=== PATIENT | female | born 1985 | race Caucasian/White ===

== ENCOUNTER 2020-11-02 18:39 | Emergency (ER) | payer SELFPAY ==
[~2020-11-02] VITALS: Ht 162.6 cm; Wt 113.4 kg
[2020-11-02 19:09] VITALS: BP 120/77
--- NOTE | 2020-11-02 19:14 | NUR ---
TO LOBBY A/W BED AMBULATORY
--- NOTE | 2020-11-02 20:00 | NUR ---
SEEN AND EXAMINED BY AMINATA , WITH ORDERS AND CARRIED OUT
[2020-11-02 20:21] LABS: APPEARANCE,URINE CLOUDY (CLEAR); BILIRUBIN,URINE NEGATIVE (NEGATIVE); BLOOD, URINE 3+ (NEGATIVE); COLOR,URINE YELLOW (YELLOW); LEUKOCYTE ESTERASE ,URINE NEGATIVE (NEGATIVE); NITRITE, URINE NEGATIVE (NEGATIVE); PH,URINE 7.5 (5.0-9.0); UGLUCOSE NEGATIVE (NEGATIVE)
[2020-11-02 20:28] LABS: RBC,URINE 11-20 (MOD) /HPF (0-5); WBC,URINE 0-5 /HPF (0-5)
[2020-11-02 21:37] LABS: BASOPHILS # (AUTO) 0.1 K/uL (0.00-0.22); BASOPHILS % (AUTO) 0.7 % (0.0-2.0); EOSINOPHILS # (AUTO) 0.1 K/uL (0-0.4); EOSINOPHILS % (AUTO) 0.6 % (0.0-4.0); HEMATOCRIT 37.9 % (36-48); HEMOGLOBIN 12.6 g/dL (12.0-16.0); LYMPHOCYTES % (AUTO) 25.8 % (20.5-51.1); MEAN CORPUSCULAR HEMOGLOBIN 27 pg (27-31); MEAN CORPUSCULAR HGB CONC 33 g/dL (33-37); MEAN CORPUSCULAR VOLUME 81.1 fL (80-94); MONOCYTES # (AUTO) 0.7 K/uL (0.8-1.0); MONOCYTES % (AUTO) 6.3 % (1.7-9.3); NEUTROPHILS # (AUTO) 7.8 K/uL (1.8-7.7); NEUTROPHILS % (AUTO) 66.6 % (42.2-75.2); PLATELET COUNT (AUTO) 486 K/uL (140-450); RED BLOOD CELL COUNT(AUTO) 4.68 MIL/uL (4.20-5.40); RED CELL DISTRIBUTION WIDTH 14.6 % (11.6-13.7); WHITE BLOOD COUNT (AUTO) 11.7 K/uL (4.8-10.8)
--- NOTE | 2020-11-02 22:55 | NUR ---
ALL RESULTS BACK AND NOTED BY ERMD AND FOR D/C
[2020-11-02 23:10] VITALS: BP 120/77
--- NOTE | 2020-11-02 23:10 | NUR ---
Patient discharged with v/s stable. Written and verbal after care instructions given and explained. Patient verbalized understanding. Ambulatory with steady gait. All questions addressed prior to discharge. Advised to follow up with PMD.
== END 2020-11-02 23:10 | disposition home or self-care (01) ==
LOC: MED 18:39
DX: O20.8 Other hemorrhage in early pregnancy (principal); O99.111 Other diseases of the blood and blood-forming organs and certain disorders involving the immune mechanism complicating pregnancy, first trimester; D47.3 Essential (hemorrhagic) thrombocythemia; Z3A.08 8 weeks gestation of pregnancy
CPT/HCPCS: 36415; 76817; 81001; 81025; 84702; 85025; 86900; 86901; 87086; 99284

== ENCOUNTER 2020-11-24 13:38 | Emergency (ER) | payer MEDICAID ==
[~2020-11-24] VITALS: Ht 161.3 cm; Wt 113.9 kg
[2020-11-24 13:59] VITALS: BP 126/51
--- NOTE | 2020-11-24 14:05 | NUR ---
PATIENT AMBULATED TO BED 7.
--- NOTE | 2020-11-24 14:20 | NUR ---
35 y/o female brought in from home by family with c/c concern of miscarriage. Pt states she had a doctors appointment at clinic (11/24) and was advised she is 2-3 weeks , but there may be no heartbeat present. Pt was advised to visit ER. Pt states she does not know expected due date. Pt denies abdominal pain, bleeding, pain, dizziness, fever/chills, headache, shortness of breath, chest pain, painful urination. Lung sounds CTA. Pt placed onto bus monitor. Bed locked in lowest position, side rails x 1, call light in reach. G3 T1 L1 PMH/Meds: Denies NKA Addendum: 11/24/20 at 1630 by [facility] 35 y/o female brought in from home by family with c/c concern of miscarriage. Pt states she had a doctors appointment at clinic (11/24) and was advised she is 12 weeks , but there may be no heartbeat present. Pt was advised to visit ER. Pt states she does not know expected due date. Pt denies abdominal pain, bleeding, pain, dizziness, fever/chills, headache, shortness of breath, chest pain, painful urination. Lung sounds CTA. Pt placed onto bus monitor. Bed locked in lowest position, side rails x 1, call light in reach. G3 T1 L1. Last menstrual cycle: 09/02/2020. PMH/Meds: Denies NKA
--- NOTE | 2020-11-24 15:17 | NUR ---
Dr Ruiz at bedside examining patient
--- NOTE | 2020-11-24 16:09 | NUR ---
Lab at bedside
--- NOTE | 2020-11-24 16:14 | NUR ---
Patient disconnected from classroom monitor and ambulated to restroom.
--- NOTE | 2020-11-24 16:18 | NUR ---
Patient ambulated back onto bed and placed onto monitoring and evaluation advisor, blood pressure cuff, pulse ox. Pt present in no obvious distress, states no complaints. All pt needs met at this time. Bed locked in lowest position, side rails x 1, call light in reach.
[2020-11-24 17:42] VITALS: BP 124/77
== END 2020-11-24 17:43 | disposition home or self-care (01) ==
LOC: MED 13:38
DX: O03.9 Complete or unspecified spontaneous abortion without complication (principal); Z3A.01 Less than 8 weeks gestation of pregnancy
CPT/HCPCS: 36415; 81002; 81025; 84702; 99283